=== PATIENT | male | born 1955 | race Caucasian/White ===

== ENCOUNTER → 2024-02-03 | Outpatient (REF) | payer MEDICARE ==
[~2024-02-03] MED LIST: ADVAIR; ALBUTEROL; ALBUTEROL0.63 MG/3 INH; ALLEGRA; BREO INH; DYMISTA NASAL S23 GM; METOPROLOL; MUCINEX; ROPINIROLE HCL1 MG PO; SIMVASTATIN40 MG PO; SINGULAIR; SPIRIVA; SPIRIVA18 MCG INH; TOPROL XL25 MG PO; VIT B12 PO; VYTORIN; XANAX
== END ==
LOC: CT 07:33
PROVIDERS: ATTEND Urology
DX: N20.0 Calculus of kidney (principal)
CPT/HCPCS: 74176

== ENCOUNTER 2024-09-30 08:45 | Observation (INO) | payer MEDICARE ==
[2024-09-30] VITALS (9 sets, daily range): BP systolic 102–155; BP diastolic 59–82; PULSE 54–65; RESP 15–18; TEMP 97.3–98.2; O2SAT 97–99
[~2024-09-30] VITALS: Ht 175.3 cm; Wt 77.1 kg
[2024-09-30 09:48] LABS: CALCIUM 9.1 mg/dL (8.4-10.2); CREATININE, SERUM 0.85 mg/dL (0.72-1.25)
[2024-09-30] MEDS ORDERED: SODIUM CHLORIDE 0.9% 1000ML 1,000 ML IV SCH (10:15)
[2024-09-30] MEDS: SODIUM CHLORIDE 1 GM TAB PO SCH ×2 (17:23→21:53)
[2024-09-30] MEDS: SODIUM CHLORIDE 0.9% 1000ML 1,000 ML IV SCH (17:24)
[2024-09-30] MEDS: FUROSEMIDE 20 MG TAB PO SCH (18:20)
[2024-09-30] MEDS: ONDANSETRON HCL INJ 2MG/ML 2ML 2 MG/ML VIAL IV ONE (18:47)
[2024-09-30] MEDS: SIMVASTATIN 40 MG TAB PO SCH (21:00)
[2024-09-30] MEDS: ONDANSETRON HCL INJ 2MG/ML 2ML 2 MG/ML VIAL IV PRN (22:41)
[2024-09-30] MEDS: ZOLPIDEM TARTRATE 5 MG TAB PO PRN (22:49)
[2024-10-01] VITALS (8 sets, daily range): BP systolic 123–153; BP diastolic 66–81; PULSE 51–60; RESP 18–20; TEMP 97.4–98.4; O2SAT 95–99
[2024-10-01 05:59] LABS: BASOPHILS % 0.6 % (0.0-1.0); EOSINOPHILS # (AUTO) 0.1 (0.0-0.4); EOSINOPHILS % 3.6 % (0.0-6.0); HEMATOCRIT 32.2 % (38.2-49.6); HEMOGLOBIN 11.7 g/dL (14.0-18.0); LYMPHOCYTES # (AUTO) 1.2 (1.0-3.2); LYMPHOCYTES % 39.8 % (18.0-39.1); MEAN CORPUSCULAR HEMOGLOBIN 37.7 pg (28-32); MEAN CORPUSCULAR HGB CONC 36.3 g/dL (31-35); MEAN CORPUSCULAR VOLUME 103.9 fL (81-99); MONOCYTES # (AUTO) 0.3 (0.2-0.8); MONOCYTES % 10.7 % (4.4-11.3); NEUTROPHILS # (AUTO) 1.4 (2.1-6.9); NEUTROPHILS % 45.3 % (38.7-80.0); PLATELET COUNT 125 x10e3/uL (140-360); RED CELL DISTRIBUTION WIDTH 11.1 % (11.7-14.4); WHITE BLOOD COUNT 3.09 x10e3/uL (4.8-10.8)
[2024-10-01] MEDS: TIOTROPIUM 18 MCG INH POWDER INH SCH (06:00)
[2024-10-01 06:32] LABS: ANION GAP 12.8 mmol/L (8-16); CALCIUM 8.6 mg/dL (8.4-10.2); CREATININE, SERUM 0.87 mg/dL (0.72-1.25); POTASSIUM 3.8 mmol/L (3.5-5.1)
[2024-10-01] MEDS: METOPROLOL SUCCINATE 25 MG TAB XL PO SCH (09:00)
[2024-10-01] MEDS: ROPINIROLE HCL 1 MG TAB PO SCH (09:05)
[2024-10-01] MEDS: ALPRAZOLAM 0.25 MG TAB PO PRN (09:27)
[2024-10-01] MEDS: MAGNESIUM SULFATE 2GM/50ML 50 ML IV ONE (15:00)
[2024-10-01] MEDS: HYDROCODONE/APAP 5MG-325MG TAB PO PRN (20:12)
[2024-10-02] VITALS: BP 164/90; PULSE 56; RESP 20; TEMP 97.7; O2SAT 100
[2024-10-02 04:00] VITALS: BP 151/69; PULSE 60; RESP 20; TEMP 97.6; O2SAT 100
[2024-10-02 05:56] LABS: ALBUMIN 3.8 g/dL (3.5-5.0); ALBUMIN/GLOBULIN RATIO 1.7 (0.8-2.0); ANION GAP 12.9 mmol/L (8-16); BILIRUBIN,TOTAL 0.5 mg/dL (0.2-1.2); CALCIUM 8.8 mg/dL (8.4-10.2); CREATININE, SERUM 0.83 mg/dL (0.72-1.25); POTASSIUM 3.9 mmol/L (3.5-5.1)
[2024-10-02 07:10] VITALS: BP 145/82; PULSE 59; RESP 18; TEMP 97.9; O2SAT 99
== END 2024-10-02 08:50 | disposition home or self-care (01) ==
LOC: ER 08:51 → ERHOLD 10:22 → MED/SURG2 13:04
PROVIDERS: ADMIT Family Medicine; ATTEND Family Medicine
DX: E87.1 Hypo-osmolality and hyponatremia (principal); I10 Essential (primary) hypertension; G25.81 Restless legs syndrome; E78.5 Hyperlipidemia, unspecified; J44.89 Other specified chronic obstructive pulmonary disease; Z91.81 History of falling; G56.00 Carpal tunnel syndrome, unspecified upper limb; F17.210 Nicotine dependence, cigarettes, uncomplicated; I25.10 Atherosclerotic heart disease of native coronary artery without angina pectoris; Z95.5 Presence of coronary angioplasty implant and graft
CPT/HCPCS: 36415 ×3; 80048 ×2; 80053; 83735; 84300; 84550; 85025; 93005; 94799 ×2; 96361; 99284; G0378 ×3; J2405; J3475; J7030

== ENCOUNTER → 2025-01-26 | Day surgery (SDC) | payer MEDICARE ==
[2025-01-19 15:12] LABS: BASOPHILS % 0.4 % (0.0-1.0); EOSINOPHILS % 4.2 % (0.0-6.0); LYMPHOCYTES % 38.0 % (18.0-39.1); MONOCYTES % 9.5 % (4.4-11.3); NEUTROPHILS % 47.7 % (38.7-80.0); RED CELL DISTRIBUTION WIDTH 11.8 % (11.7-14.4)
[~2025-01-26] MED LIST changes: +ALLERGY SHOTS; +ASPIRIN81 MG PO; +CARVEDILOL3.125 MG PO; +CLINDAMYCIN 600MG / 50ML 50 ML IV ONE; +DEXMEDETOMIDINE HCL 2 ML ONE; +DYMISTA NASAL S23 GM INH; +FENTANYL CITRATE/PF 100MCG/2 ML INJ ONE; +FLOMAX0.4 MG PO; +FLONASE SENSIM5.9 ML; +FOLIC ACID0.4 MG PO; +GABAPENTIN300 MG PO; +HYDROCODON-ACE1 EA11 PO; +LACTATED RINGER'S 1,000 ML ONE; +LIDOCAINE HCL 2% LOCAL INJ 5 ML SDV VIAL INJ ONE; +LIPITOR20 MG PO; +LOSARTAN POTAS100 MG PO; +METHOCARBAMOL750 MG PO; +MIDAZOLAM HCL 2 MG/2 ML VIAL ONE; +MOTRIN200 MG PO; +ONDANSETRON HCL INJ 2MG/ML 2ML 2 MG/ML VIAL ONE; +PLAVIX75 MG PO; +PROPOFOL IV EMULSION 10 MG/ML 20 ML VIAL ONE; +SEVOFLURANE INHAL SOLN 250 ML PEN BTL ONE; +TRELEGY ELLIPT1 EACH; +VITAMIN D250 MC1
[2025-01-26 07:55] VITALS: TEMP 97.2
[2025-01-26 08:15] VITALS: BP 137/72; PULSE 61; RESP 16; O2SAT 97
== END | disposition home or self-care (01) ==
LOC: OR 05:30
PROVIDERS: ATTEND Plastic Surgery
DX: G56.02 Carpal tunnel syndrome, left upper limb (principal); M65.832 Other synovitis and tenosynovitis, left forearm; I10 Essential (primary) hypertension; E78.5 Hyperlipidemia, unspecified; I25.119 Atherosclerotic heart disease of native coronary artery with unspecified angina pectoris; I65.22 Occlusion and stenosis of left carotid artery; I87.2 Venous insufficiency (chronic) (peripheral); J44.9 Chronic obstructive pulmonary disease, unspecified; M17.10 Unilateral primary osteoarthritis, unspecified knee; F17.210 Nicotine dependence, cigarettes, uncomplicated; Z95.5 Presence of coronary angioplasty implant and graft; Z91.041 Radiographic dye allergy status; Z91.040 Latex allergy status; Z88.1 Allergy status to other antibiotic agents; Z79.02 Long term (current) use of antithrombotics/antiplatelets; Z79.82 Long term (current) use of aspirin; Z79.51 Long term (current) use of inhaled steroids; Z79.52 Long term (current) use of systemic steroids; Z01.812 Encounter for preprocedural laboratory examination
CPT/HCPCS: 25115; 36415; 64721; 71046; 85025; J2003; J2250; J2405; J2704; J3010; J7121